=== PATIENT | male | born 1965 | race Caucasian/White ===

== ENCOUNTER 2017-02-18 06:57 | Day surgery (SDC) | payer BC ==
[2017-02-18] MEDS ORDERED: Bupivacaine 0.25%/EPINEPHrine 1:200,000 10 ML SDV INJECT ONE (07:00)
[2017-02-18] MEDS ORDERED: Acetaminophen/HYDROcodone 325-5 MG Tab PO PRN (07:00)
[2017-02-18] MEDS ORDERED: Bupivacaine 0.25%/EPINEPHrine 1:200,000 10 ML SDV ONE (07:32)
--- NOTE | 2017-02-18 07:38 | PCM.PREANE ---
Preanesthetic Assessment - Anesthesia/Transfusion/Family Hx Anesthesia History: Prior Anesthesia Without Reaction Family History of Anesthesia Reaction: No Transfusion History: No Prior Transfusion(s) Intubation History: Unknown - Review of Systems General: No Symptoms Pulmonary: No Symptoms Cardiovascular: No Symptoms Gastrointestinal: No Symptoms Neurological: No Symptoms Other: Reports: None - Physical Assessment NPO Status Date: 02/17/17 NPO Status Time: 20:00 O2 Sat by Pulse Oximetry: 97 Respiratory Rate: 16 Vital Signs: Last Vital Signs Temp 36.5 C 02/18/17 07:11 Pulse 58 L 02/18/17 07:11 Resp 16 02/18/17 07:11 BP 120/69 02/18/17 07:11 Pulse Ox 97 02/18/17 07:11 Height: 1.85 m Weight: 83.915 kg ASA Class: 2 Mental Status: Alert & Oriented x3 Airway Class: Mallampati = 2 Dentition: Reports: Partial (upper and lower) Thyro-Mental Finger Breadths: 3 Mouth Opening Finger Breadths: 3 ROM/Head Extension: Full Lungs: Clear to Auscultation, Normal Respiratory Effort Cardiovascular: Regular Rate, Regular Rhythm - Allergies Allergies/Adverse Reactions: Allergies Allergy/AdvReac Type Severity Reaction Status Date / Time No Known Allergies Allergy Verified 09/16/15 09:14 - Blood Blood Available: No - Anesthesia Plan Pre-Op Medication Ordered: None - Acknowledgements Anesthesia Type Planned: MAC Pt an Appropriate Candidate for the Planned Anesthesia: Yes Alternatives and Risks of Anesthesia Discussed w Pt/Guardian: Yes Pt/Guardian Understands and Agrees with Anesthesia Plan: Yes PreAnesthesia Questionnaire HEENT History: Reports: Other (See Below) Other HEENT History: wears glasses, has top and bottom partial Respiratory History: Reports: COPD Musculoskeletal History: Reports: Arthritis, Back Pain, Chronic Psychiatric History: Reports: Anxiety - Past Surgical History Head Surgeries/Procedures: Reports: None Neurological Surgical History: Reports: Lumbar Spine Other Neurological Surgeries/Procedures: hx back surgery Musculoskeletal Surgical History: Reports: Arthroscopic Knee, Hip Replacement, Shoulder Surgery Other Musculoskeletal Surgeries/Procedures:: right knee arthroscopy x3, left hip arthroplasty, right shoulder surgery - SUBSTANCE USE Smoking Status *Q: Former Smoker Tobacco Use Within Last Twelve Months: No Days Per Week of Alcohol Use: 7 Number of Drinks Per Day: 2 Total Drinks Per Week: 14 Recreational Drug Use History: No - HOME MEDS Home Medications: Home Meds LORazepam 0.5 mg PO ASDIRECTED 02/15/17 [History] - CURRENT (IN HOUSE) MEDS Current Meds: Current Medications Hydrocodone Bitart/Acetaminophen (Traver 325-5 Mg) 1 tab PO Q4H PRN PRN Reason: Pain Lactated Ringer's (Ringers, Lactated) 1,000 mls @ 125 mls/hr IV ASDIRECTED ANNA Last Admin: 02/18/17 07:13 Dose: 125 mls/hr Cefazolin Sodium/Dextrose 2 gm (/ Premix) 50 mls @ 100 mls/hr IV ONETIME ONE Stop: 02/18/17 08:29 Discontinued Medications Bupivacaine HCl/Epinephrine Bitart (Marcaine 0.25%/Epinephrine 1:200,000) 10 ml INJECT ONETIME ONE Stop: 02/18/17 07:01
[2017-02-18] MEDS ORDERED: Ondansetron 4 MG/2 ML SDV ONE (07:44)
[2017-02-18] MEDS ORDERED: Midazolam 1 MG/ML 2 ML SDV ONE (07:45)
[2017-02-18] MEDS ORDERED: fentaNYL 100 MCG/2 ML SDV ONE (07:45)
[2017-02-18] MEDS ORDERED: Propofol 200 MG/20 ML SDV ONE (07:45)
[2017-02-18] MEDS ORDERED: Lactated Ringers 1,000 ML IV SCH (08:00)
[2017-02-18] MEDS ORDERED: ceFAZolin 2 GM in Premix Bag 1 BAG IV ONE (08:00)
[2017-02-18] MEDS ORDERED: Ketorolac 30 MG/ML SDV ONE (08:56)
[2017-02-18 09:52] VITALS: BP 111/70
--- NOTE | 2017-02-18 09:54 | PCM48HPAN ---
Post Anesthesia Note - EVALUATION WITHIN 48HRS OF ANESTHETIC Vital Signs in Normal Range: Yes Patient Participated in Evaluation: Yes Respiratory Function Stable: Yes Airway Patent: Yes Cardiovascular Function Stable: Yes Hydration Status Stable: Yes Pain Control Satisfactory: Yes Nausea and Vomiting Control Satisfactory: Yes Mental Status Recovered: Yes - COMMENTS/OBSERVATIONS Free Text/Narrative:: No anesthesia problems. Patient skipped recovery room phase of postoperative care.
--- NOTE | 2017-02-21 08:45 | PCM.OPNOTE ---
- General Post-Op/Procedure Note Date of Surgery/Procedure: 02/18/17 Operative Procedure(s): right carpal tunnel release Findings: right carpal tunnel syndrome Pre Op Diagnosis: right carpal tunnel syndrome Post-Op Diagnosis: Same Primary Surgeon: Nette Ramirez Medicaid Service Coordinator: Nery Brennan Complications: None Condition: Good
--- NOTE | 2017-02-21 14:08 | OR ---
SURGEON: JERRY COWAN MD DATE OF PROCEDURE: 02/18/2017 PREOPERATIVE DIAGNOSIS: Right carpal tunnel syndrome. POSTOPERATIVE DIAGNOSIS: Right carpal tunnel syndrome. PROCEDURE: Right carpal tunnel release. INDICATIONS: Mr. Fuller is a 51-year-old gentleman seen today in evaluation for right carpal tunnel release. Risks and benefits were discussed and he was in agreement to proceed. Risks were including, but not limited to, bleeding, infection, damage to underlying or overlying structures, possible need for future interventions and possible scarring. PROCEDURE IN DETAIL: After informed consent was obtained and placed on the chart, the patient was brought to the operating theater and laid in the supine position. After adequate local MAC anesthesia was obtained, the area was prepped and draped, and a time-out was completed to confirm side and site. The arm was exsanguinated and tourniquet was inflated to 200 mmHg. Once adequately completed, attention was then paid to dissection over the transverse carpal ligament which was done using a 15 blade and then once breached of the ligament dissection distally and proximally using a Littler scissor under direct visualization. Once adequately released, the area was irrigated and closed using a 5-0 nylon stitch in a horizontal mattress fashion. The patient tolerated the procedure well. All counts and needles were correct at the end of the case. FOLLOWUP INSTRUCTIONS: The patient was given a prescription for pain control and will call us with any issues or concerns. Otherwise, he will follow up in 10 days, sooner if any problems, questions, or concerns. Prescription was given for pain medication. HEGGTHE / EDGAR /[id number]
== END 2017-02-18 09:50 | disposition home or self-care (01) ==
LOC: MW.SDS 06:57
PROVIDERS: ATTEND Plastic Surgery
PROC: 01N50ZZ Release Median Nerve, Open Approach (ICD-10-PCS; principal; 2017-02-18)
DX: G56.01 Carpal tunnel syndrome, right upper limb (principal); J44.9 Chronic obstructive pulmonary disease, unspecified; M19.90 Unspecified osteoarthritis, unspecified site; Z87.891 Personal history of nicotine dependence; Z96.641 Presence of right artificial hip joint; Z98.890 Other specified postprocedural states
CPT/HCPCS: 64721; J1885; J2250; J2405; J3010; J7120; 01810; J2704

== ENCOUNTER 2017-07-20 10:12 | Day surgery (SDC) | payer BC ==
[~2017-07-20 10:12] MED LIST: Acetaminophen/HYDROcodone 325-10 MG Tab PO PRN; Dexamethasone 4 MG/ML 5 ML MDV ONE; HYDROmorphone 2 MG/ML Syringe ONE; Ketorolac 10 MG Tab PO PRN; Lactated Ringers 1,000 ML IV SCH; Midazolam 1 MG/ML 2 ML SDV ONE; Ondansetron 4 MG/2 ML SDV ONE; Propofol 200 MG/20 ML SDV ONE; Rocuronium 10 MG/ML 10 ML Syringe ONE; ceFAZolin 2 GM in Premix Bag 1 BAG IV SCH; diphenhydrAMINE 50 MG/ML SDV ONE; fentaNYL 250 MCG/5 ML SDV ONE
[2017-07-20] MEDS ORDERED: fentaNYL 100 MCG/2 ML SDV IVPUSH PRN (10:46)
[2017-07-20] MEDS ORDERED: Midazolam 1 MG/ML 2 ML SDV IVPUSH ONE (10:47)
--- NOTE | 2017-07-20 10:49 | PCM.PREANE ---
Preanesthetic Assessment - Anesthesia/Transfusion/Family Hx Anesthesia History: Prior Anesthesia Without Reaction Family History of Anesthesia Reaction: No Transfusion History: No Prior Transfusion(s) Intubation History: Unknown - Review of Systems General: No Symptoms Pulmonary: Other (PEREZ) Cardiovascular: No Symptoms Gastrointestinal: No Symptoms Neurological: No Symptoms Other: Reports: None - Physical Assessment O2 Sat by Pulse Oximetry: 100 Respiratory Rate: 16 Vital Signs: Last Vital Signs Temp 36.3 C 07/20/17 10:37 Pulse 76 07/20/17 10:37 Resp 16 07/20/17 10:37 BP 110/83 07/20/17 10:37 Pulse Ox 100 07/20/17 10:37 Height: 1.85 m Weight: 81.647 kg ASA Class: 2 Mental Status: Alert & Oriented x3 Airway Class: Mallampati = 2 Dentition: Reports: Normal Dentition ROM/Head Extension: Full Lungs: Clear to Auscultation, Normal Respiratory Effort Cardiovascular: Regular Rate, Regular Rhythm - Allergies Allergies/Adverse Reactions: Allergies Allergy/AdvReac Type Severity Reaction Status Date / Time No Known Allergies Allergy Verified 09/16/15 09:14 - Anesthesia Plan Pre-Op Medication Ordered: None - Acknowledgements Anesthesia Type Planned: General Anesthesia Pt an Appropriate Candidate for the Planned Anesthesia: Yes Alternatives and Risks of Anesthesia Discussed w Pt/Guardian: Yes Pt/Guardian Understands and Agrees with Anesthesia Plan: Yes PreAnesthesia Questionnaire HEENT History: Reports: Other (See Below) Other HEENT History: wears glasses, has top and bottom partial Respiratory History: Reports: COPD Musculoskeletal History: Reports: Arthritis, Back Pain, Chronic Neurological History: Reports: Head Trauma Other Neuro History: restless leg syndrome, hx head injury with stitches Psychiatric History: Reports: Anxiety - Past Surgical History Head Surgeries/Procedures: Reports: None Neurological Surgical History: Reports: Lumbar Spine Other Neurological Surgeries/Procedures: hx back surgery Musculoskeletal Surgical History: Reports: Arthroscopic Knee, Hip Replacement, Shoulder Surgery Other Musculoskeletal Surgeries/Procedures:: right knee arthroscopy x3, left hip arthroplasty, right shoulder surgery - SUBSTANCE USE Smoking Status *Q: Former Smoker Tobacco Use Within Last Twelve Months: No Days Per Week of Alcohol Use: 7 Number of Drinks Per Day: 2 Total Drinks Per Week: 14 Recreational Drug Use History: No - HOME MEDS Home Medications: Home Meds LORazepam 1 mg PO TID 02/15/17 [History] Acetaminophen with Codeine [Acetaminophen-Cod #3] 2 tab PO BEDTIME 07/13/17 [ History] DULoxetine HCl [Cymbalta] 60 mg PO DAILY 07/13/17 [History] Gabapentin [Neurontin] 600 mg PO TID 07/13/17 [History] - CURRENT (IN HOUSE) MEDS Current Meds: Current Medications Hydrocodone Bitart/Acetaminophen (Kell 325-10 Mg) 1 - 2 tab PO Q4H PRN PRN Reason: Pain Cefazolin Sodium/Dextrose 2 gm (/ Premix) 50 mls @ 100 mls/hr IV ONCALL [facility] Lactated Ringer's (Ringers, Lactated) 1,000 mls @ 100 mls/hr IV ASDIRECTED [facility] Ketorolac Tromethamine (Toradol) 10 mg PO Q6H PRN PRN Reason: Pain Stop: 07/25/17 09:01 Discontinued Medications Dexamethasone (Dexamethasone) Confirm Administered Dose 20 mg .ROUTE .STK-MED ONE Stop: 07/20/17 08:57 Diphenhydramine HCl (Benadryl) Confirm Administered Dose 50 mg .ROUTE .STK-MED ONE Stop: 07/20/17 08:57 Fentanyl (Sublimaze) Confirm Administered Dose 250 mcg .ROUTE .STK-MED ONE Stop: 07/20/17 08:58 Hydromorphone HCl (Dilaudid) Confirm Administered Dose 2 mg .ROUTE .STK-MED ONE Stop: 07/20/17 08:58 Cefazolin Sodium/Dextrose (Ancef) Confirm Administered Dose 100 mls @ as directed .ROUTE .STK-MED ONE Stop: 07/20/17 08:57 Acetaminophen (Ofirmev) Confirm Administered Dose 100 mls @ as directed IV .STK- MED ONE Stop: 07/20/17 09:03 Midazolam HCl (Versed 1 Mg/Ml) Confirm Administered Dose 2 mg .ROUTE .STK-MED ONE Stop: 07/20/17 08:58 Ondansetron HCl (Zofran) Confirm Administered Dose 4 mg .ROUTE .STK-MED ONE Stop: 07/20/17 08:57 Propofol (Diprivan 20 Ml) Confirm Administered Dose 200 mg .ROUTE .STK-MED ONE Stop: 07/20/17 08:58 Rocuronium [place] (Zemuron) Confirm Administered Dose 100 mg .ROUTE .[facility] ONE Stop: 07/20/17 08:57
[2017-07-20] MEDS ORDERED: Lidocaine 2% 5 ML SDV ONE (10:52)
[2017-07-20] MEDS ORDERED: Dexamethasone 4 MG/ML 5 ML MDV ONE (10:52)
[2017-07-20] MEDS ORDERED: Bupivacaine 0.5% 30 ML SDV ONE (10:54)
--- NOTE | 2017-07-20 11:12 | PCM.SN ---
- Free Text/Narrative Note: isb note: time out performed, skin local with 1% xylo. 30 ml 0.5% bupiv plus 8 mg dexamethssone given in 5 ml increments, + twitch, no paresthesia, no blood or csf. No complications.
[2017-07-20] MEDS ORDERED: Phenylephrine 1% 10 MG/ML SDV ONE (11:49)
[2017-07-20] MEDS ORDERED: Phenylephrine/Normal Saline 100 MCG/ML 10 ML Syringe ONE (11:49)
--- NOTE | 2017-07-20 13:21 | PCM.OPNOTE ---
- General Post-Op/Procedure Note Date of Surgery/Procedure: 07/20/17 Operative Procedure(s): L shoulder arthroscopy with SAD, debridement of anterior labrum, and RTCR Post-Op Diagnosis: L shoulder impingement, RTC tear, degenerative anterior labral tear Anesthesia Technique: General ET Tube, Regional Block Primary Surgeon: Arti Starr Catalyst Supervisor: Robyn Feliciano in mLs: 10 Condition: Good Free Text/Narrative:: #[id number]
--- NOTE | 2017-07-20 14:05 | PCM.POSTAN ---
POST ANESTHESIA ASSESSMENT - MENTAL STATUS Mental Status: Alert, Oriented - RESPIRATORY Respiratory Status: Respiratory Rate WNL, Airway Patent, O2 Saturation Stable - CARDIOVASCULAR CV Status: Pulse Rate WNL, Blood Pressure Stable - GASTROINTESTINAL GI Status: No Symptoms - POST OP HYDRATION Hydration Status: Adequate & Stable
[2017-07-20 14:56] VITALS: BP 119/79
--- NOTE | 2017-07-20 18:00 | OR ---
SURGEON: Arti Starr MD DATE OF PROCEDURE: 07/20/2017 PREOPERATIVE DIAGNOSES: 1. Left shoulder impingement syndrome. 2. Left shoulder rotator cuff tear. 3. Biceps tendinopathy. POSTOPERATIVE DIAGNOSES: 1. Left shoulder impingement syndrome. 2. Left shoulder rotator cuff tear. 3. Left shoulder degenerative anterior labral tear. 4. Biceps tendinopathy. PROCEDURE: Left shoulder arthroscopy with, 1. Subacromial decompression with release of coracoacromial ligament and acromioplasty. 2. Extensive debridement including debridement of degenerative anterior labral tear and biceps tenotomy. 3. Arthroscopic rotator cuff repair. KINDERGARTNER: Robyn Feliciano PA-C. ANESTHESIA: General with interscalene block. ESTIMATED BLOOD LOSS: 5 mL. TOURNIQUET TIME: 0 minutes. COMPLICATIONS: None. DVT PROPHYLAXIS: PAS boots to bilateral lower extremities. IMPLANTS USED: One Arthrex 4.5 mm corkscrew anchor and one Arthrex 4.75 mm BioComposite anchor. BRIEF HISTORY: [place] is a 52-year-old male who has had complaint of left shoulder pain. An MRI did show evidence of impingement syndrome along with a small full-thickness tear along the anterior aspect of the supraspinatus. Due to his lack of response to conservative treatment, I did recommend surgical intervention. The risks and goals of procedure were discussed with the patient and were documented preoperatively. He agreed to proceed. DESCRIPTION OF PROCEDURE: The patient was properly identified and brought to the operating room. He was transferred from the OR cart and placed on the operating table in supine position. General anesthesia was administered. An interscalene block had been administered preoperatively. After adequate anesthesia was obtained, the patient was placed in a beach-chair type position. Care was taken to pad all bony prominences. His head was secured. Left upper extremity was then prepped in standard fashion using ChloraPrep solution. It was then sterilely draped. A time-out was performed to ensure correct site and procedure. Preoperative antibiotics were given. The surgical site had been marked preoperatively. Bony landmarks were identified with a marking pen. Approximately 30 mL of normal saline was introduced into the glenohumeral joint. Camera, inflow, and outflow were assembled. The rotator interval was identified. He did have mild synovitis. An anterior portal was then established. A probe was inserted. The subscapularis was found to be intact. There were no loose bodies within the subscapular recess. The anterior labrum did show some degeneration. This was resected using electrocautery to a stable remnant. The biceps was then inspected. It was pulled into the joint. Extensive synovitis was noted along the distal portion of the biceps. Some longitudinal splits were also noted. Next, elected to proceed with a biceps tenotomy. Electrocautery was used to tenotomized the biceps tendon at its insertion on the glenoid labrum. Its attachment site was smoothed. The biceps retracted easily into the bicipital tendon sheath. The posterior labrum appeared intact. Both the glenoid and humeral head showed no significant degenerative findings. The axillary pouch showed no loose bodies. The arm was then brought into an abducted and externally rotated position. The bare area was noted posteriorly. As I progressed forward, the cuff insertion was quite degenerative. This was resected for visualization. The majority of the cuff appeared intact. As I got to the anterior portion of the supraspinatus, there was found to be a full-thickness tear noted. The arm was then brought back into a neutral position. Instruments were then placed into the subacromial space. A lateral portal was established. An extensive bursectomy was performed. The undersurface of the acromion was cleared of soft tissue. A type 2 acromion was noted. Release of the coracoacromial ligament was performed. An acromioplasty was done with a 5.0 mm kristen. This provided good decompression of the subacromial space. The rotator cuff was then inspected. The full-thickness tear was noted anteriorly. A cuff grasper was used to reapproximate the cuff tissue back to its footprint and was found to be adequately mobile. The kristen was then used to roughen up the footprint just lateral to the articular surface. A 4.5 mm corkscrew was then placed centrally. The sutures were passed through the rotator cuff. The sutures were then tied. This allowed the rotator cuff to easily come back to the footprint. I elected to place a 4.75 mm SwiveLock anchor laterally to provide additional compression of the sutures on the rotator cuff. Final inspection of the cuff showed the cuff to be secure with a watertight closure. The suture ends were then trimmed. Instruments were removed from the shoulder. The portal sites were closed with 3-0 nylon. Xeroform gauze was placed over the wounds and a bulky dressing was applied. He was awakened from his anesthetic and transferred back to the operating room cart. He was brought to recovery room in stable condition. All needle and sponge counts were correct. MONICA HERNÁNDEZ /[id number]
== END 2017-07-20 15:30 | disposition home or self-care (01) ==
LOC: MW.SDS 10:12
PROVIDERS: ATTEND Orthopaedic Surgery
DX: M75.102 Unspecified rotator cuff tear or rupture of left shoulder, not specified as traumatic (principal); M75.42 Impingement syndrome of left shoulder; M67.929 Unspecified disorder of synovium and tendon, unspecified upper arm; S43.492A Other sprain of left shoulder joint, initial encounter; Z79.899 Other long term (current) drug therapy; X58.XXXA Exposure to other specified factors, initial encounter
CPT/HCPCS: 29823; 29826; 29827; C1713; J0690; J1100; J1200; J2250; J2370; J2405; J3010; 01630; 88304; J1170; J2704

== ENCOUNTER 2018-08-09 07:27 | Day surgery (SDC) | payer BC ==
[~2018-08-09 07:27] MED LIST changes: -Acetaminophen/HYDROcodone 325-10 MG Tab PO PRN; -HYDROmorphone 2 MG/ML Syringe ONE; -Ketorolac 10 MG Tab PO PRN; -Lactated Ringers 1,000 ML IV SCH; +Succinylcholine 200 MG/10 ML MDV ONE; -ceFAZolin 2 GM in Premix Bag 1 BAG IV SCH; -diphenhydrAMINE 50 MG/ML SDV ONE
[2018-08-09] MEDS ORDERED: ceFAZolin 2 GM in Premix Bag 1 BAG IV SCH (07:30)
[2018-08-09] MEDS ORDERED: Bupivacaine 25%/EPINEPHrine/PF 30 ML ONE (07:30)
[2018-08-09] MEDS ORDERED: EPINEPHrine 1 MG/ML SDV ONE (07:30)
--- NOTE | 2018-08-09 07:55 | PCM.PREANE ---
Preanesthetic Assessment - Anesthesia/Transfusion/Family Hx Anesthesia History: Prior Anesthesia Without Reaction Family History of Anesthesia Reaction: No Transfusion History: No Prior Transfusion(s) Intubation History: Unknown - Review of Systems General: No Symptoms Pulmonary: Shortness of Breath Cardiovascular: No Symptoms, Dyspnea on Exertion Neurological: Other (chronic LBP) Other: Reports: Anxiety - Physical Assessment NPO Status Date: 08/08/18 O2 Sat by Pulse Oximetry: 99 Respiratory Rate: 16 Vital Signs: Last Vital Signs Temp 97.7 F 08/09/18 07:50 Pulse 78 08/09/18 07:50 Resp 16 08/09/18 07:50 BP 112/85 08/09/18 07:50 Pulse Ox 99 08/09/18 07:50 Height: 6 ft 1 in Weight: 81.647 kg ASA Class: 2 Mental Status: Alert & Oriented x3 Airway Class: Mallampati = 1 Dentition: Reports: Missing Tooth/Teeth ROM/Head Extension: Full Lungs: Clear to Auscultation, Normal Respiratory Effort Cardiovascular: Regular Rate, Regular Rhythm - Allergies Allergies/Adverse Reactions: Allergies Allergy/AdvReac Type Severity Reaction Status Date / Time No Known Allergies Allergy Verified 08/04/18 13:11 - Blood Blood Available: No - Anesthesia Plan Pre-Op Medication Ordered: None - Acknowledgements Anesthesia Type Planned: General Anesthesia Pt an Appropriate Candidate for the Planned Anesthesia: Yes Alternatives and Risks of Anesthesia Discussed w Pt/Guardian: Yes Pt/Guardian Understands and Agrees with Anesthesia Plan: Yes PreAnesthesia Questionnaire HEENT History: Reports: Hard of Hearing, Impaired Vision, Other (See Below) Other HEENT History: wears glasses, has top and bottom partial, himanshu hearing aids Respiratory History: Reports: COPD Other Respiratory History: denies having prescribed inhaler Musculoskeletal History: Reports: Arthritis, Back Pain, Chronic, Fracture Other Musculoskeletal History: hx fx ribs and bone in left hand Neurological History: Reports: Head Trauma, Other (See Below) Other Neuro History: restless leg syndrome, hx head injury with stitches Psychiatric History: Reports: Anxiety Endocrine/Metabolic History: Reports: None - Past Surgical History Head Surgeries/Procedures: Reports: None Neurological Surgical History: Reports: Lumbar Spine Other Neurological Surgeries/Procedures: hx back surgery Musculoskeletal Surgical History: Reports: Arthroscopic Knee, Hip Replacement, Shoulder Surgery Other Musculoskeletal Surgeries/Procedures:: right knee arthroscopy x3, left hip arthroplasty, himanshu shoulder surgery - SUBSTANCE USE Smoking Status *Q: Former Smoker Recreational Drug Use History: No - HOME MEDS Home Medications: Home Meds LORazepam 1 mg PO TID PRN 02/15/17 [History] DULoxetine HCl [Cymbalta] 60 mg PO DAILY 07/13/17 [History] Gabapentin [Neurontin] 600 mg PO TID 07/13/17 [History] Acetaminophen with Codeine [Tylenol with Codeine #3 Tablet] 2 tab PO BEDTIME [History] Celecoxib 200 mg pe PO DAILY 08/04/18 [History] - CURRENT (IN HOUSE) MEDS Current Meds: Current Medications Cefazolin Sodium/Dextrose 2 gm (/ Premix) 50 mls @ 100 mls/hr IV ONETIME ANNA Discontinued Medications Dexamethasone (Dexamethasone) Confirm Administered Dose 20 mg .ROUTE .STK-MED ONE Stop: 08/09/18 07:00 Epinephrine HCl (Adrenalin) Confirm Administered Dose 6 mg .ROUTE .STK-MED ONE Stop: 08/09/18 07:31 Fentanyl (Sublimaze) Confirm Administered Dose 250 mcg .ROUTE .STK-MED ONE Stop: 08/09/18 06:58 Lidocaine HCl (Xylocaine-Mpf 1%) Confirm Administered Dose 5 mls @ as directed .ROUTE .STK-MED ONE Stop: 08/09/18 07:00 Bupivacaine HCl/Epinephrine Bitart (Sensorc Mpf 0.25%-Epi [id number]) Confirm Administered Dose 30 mls @ as directed .ROUTE .STK-MED ONE Stop: 08/09/18 07:31 Midazolam HCl (Versed 1 Mg/Ml) Confirm Administered Dose 2 mg .ROUTE .STK-MED ONE Stop: 08/09/18 06:58 Ondansetron HCl (Zofran) Confirm Administered Dose 4 mg .ROUTE .STK-MED ONE Stop: 08/09/18 07:00 Propofol (Diprivan 20 Ml) Confirm Administered Dose 200 mg .ROUTE .STK-MED ONE Stop: 08/09/18 06:58 Rocuronium [place] (Zemuron) Confirm Administered Dose 100 mg .ROUTE .STK-MED ONE Stop: 08/09/18 07:00 Succinylcholine Chloride (Quelicin) Confirm Administered Dose 200 mg .ROUTE .STK -MED ONE Stop: 08/09/18 07:00
[2018-08-09] MEDS ORDERED: ceFAZolin/Dextrose,Iso-Osmotic 2 GM/50 ML Duplex Bag IV ONE ×2 (08:16→09:35)
[2018-08-09] MEDS ORDERED: Midazolam 1 MG/ML 2 ML SDV ONE (09:36)
[2018-08-09] MEDS ORDERED: fentaNYL 250 MCG/5 ML SDV ONE (09:36)
[2018-08-09] MEDS ORDERED: Propofol 200 MG/20 ML SDV ONE (09:37)
[2018-08-09] MEDS ORDERED: Phenylephrine 1% 10 MG/ML SDV ONE (09:52)
--- NOTE | 2018-08-09 10:53 | PCM.OPNOTE ---
- General Post-Op/Procedure Note Date of Surgery/Procedure: 08/09/18 Operative Procedure(s): left hip endoscopy, iliopsoas recession, trochanteric bursectomy with iliotibial band lengthening Pre Op Diagnosis: left hip iliopsoas bursitis and trochanteric bursitis Post-Op Diagnosis: same Anesthesia Technique: General ET Tube Primary Surgeon: Jermaine Bolton Mai Supervisor Tree Trimming: Robyn Feliciano EBL in mLs: 5 Complications: none Condition: Good
[2018-08-09] MEDS ORDERED: Acetaminophen 1,000 MG in Premix Bag 1 BAG IV ONE (11:19)
[2018-08-09] MEDS ORDERED: Ketorolac 30 MG/ML SDV IVPUSH ONE (11:19)
[2018-08-09] MEDS ORDERED: HYDROmorphone 2 MG/ML SDV IVPUSH ONE (11:20)
[2018-08-09] MEDS ORDERED: HYDROmorphone 2 MG/ML Syringe IVPUSH ONE (12:00)
--- NOTE | 2018-08-09 12:09 | PCM.POSTAN ---
POST ANESTHESIA ASSESSMENT - MENTAL STATUS Mental Status: Alert, Oriented - RESPIRATORY Respiratory Status: Respiratory Rate WNL, Airway Patent, O2 Saturation Stable - CARDIOVASCULAR CV Status: Pulse Rate WNL, Blood Pressure Stable - GASTROINTESTINAL GI Status: No Symptoms - POST OP HYDRATION Hydration Status: Adequate & Stable - OBSERVATIONS Free Text/Narrative:: comfortable, no nausea
--- NOTE | 2018-08-09 13:07 | OR ---
SURGEON: Jermaine Schulz MD DATE OF PROCEDURE: 08/09/2018 DISTANCE LEARNING COORDINATOR: Robyn Feliciano PA-C PREOPERATIVE DIAGNOSIS: Left hip iliopsoas bursitis and trochanteric bursitis. POSTOPERATIVE DIAGNOSIS: Left hip iliopsoas bursitis and trochanteric bursitis. OPERATION PERFORMED: Left hip arthroscopy, iliopsoas recession, trochanteric bursectomy with the IT band lengthening. ANESTHESIA: General. COMPLICATIONS: None. ESTIMATED BLOOD LOSS: 5 mL. SPECIMENS: None. INDICATIONS: The patient is a 53-year-old male who several years ago at an outside facility had underwent a left hip replacement. The cup is prominent anteriorly rubbing on the iliopsoas tendon. He had good relief from injection. He wished to undergo the above procedure. He understands the risks, benefits, alternatives, and complications of the procedure which includes, but not limited, infection, neurovascular injury, continued pain, nonresolution of symptoms, need further surgery to include hip revision and he wished to proceed. DESCRIPTION OF PROCEDURE: The patient was seen in the preoperative area. Operative extremity was marked with the patient. He was transferred to operating room and placed supine on the Nathan table. General anesthesia was induced. Endotracheal tube was placed. He received preop antibiotics of Ancef. The legs were placed in the leg bars with a narrow perineal post. Left hip was prepped and draped in a sterile fashion using alcohol, followed by ChloraPrep. A formal time-out was taken, identifying the correct patient, procedure, and extremity. Under fluoroscopic control, primary anterolateral portal was established just superior and anterior to the tip of the greater trochanter. A DALA portal was established about 5 cm distal and the mid anterior portal 2 cm distal and 4 cm anterior. A shaver was used to clean out the area anterior to the joint. The indirect head of the rectus was found and the fat between the gluteus minimus and iliocapsularis was cleaned out, visualized medially. The iliocapsularis muscle was debrided off the anterior aspect of the tendon. There was a lot of bleeding in this area which was controlled radiofrequency device and then the iliopsoas tendon was found directly on top of the cup, which was exposed with intense amount of bursitis around this and this was completely cleaned out with the shaver and then the radiofrequency device was used to release the tendon just above the acetabular component. Following this, the leg was abducted, arthroscope was introduced into the peritrochanteric space. Extensive amount of scar tissue and bursitis completely cleaned out distally exposing the gluteus carlos tendon, and then switching and cleaned up proximally. There was no tearing of the abductors. The complete bursectomy was performed proximally and then the IT band was lengthened at about three quarters of it from anterior to posterior based on the very lateral aspect of the femur. The hip was then drained. The arthroscopic equipment was removed. Portals closed with nylon. Xeroform sterile dressing was applied. The patient was extubated in the operative room, transferred to the recovery room in stable condition. Sponge and needle counts were correct at the end of the case. There were no complications. He will be kept weightbearing as tolerated with hip flexion exercises. NATALY HERNÁNDEZ /[id number]
[2018-08-09 13:15] VITALS: BP 114/68
--- NOTE | 2018-08-09 13:28 | PCM48HPAN ---
Post Anesthesia Note - EVALUATION WITHIN 48HRS OF ANESTHETIC Vital Signs in Normal Range: Yes Patient Participated in Evaluation: Yes Respiratory Function Stable: Yes Airway Patent: Yes Cardiovascular Function Stable: Yes Hydration Status Stable: Yes Pain Control Satisfactory: Yes Nausea and Vomiting Control Satisfactory: Yes Mental Status Recovered: Yes Resp Rate: 16
== END 2018-08-09 13:43 | disposition home or self-care (01) ==
LOC: MW.SDS 07:27
PROVIDERS: ATTEND Orthopaedic Surgery
DX: M70.62 Trochanteric bursitis, left hip (principal); M70.72 Other bursitis of hip, left hip; G89.29 Other chronic pain; J44.9 Chronic obstructive pulmonary disease, unspecified; F41.9 Anxiety disorder, unspecified; Z87.891 Personal history of nicotine dependence; Z79.899 Other long term (current) drug therapy; Z96.642 Presence of left artificial hip joint
CPT/HCPCS: 29863; 29999; 76000; J0131; J0171; J0330; J0690; J1100; J1170; J1885; J2250; J2370; J2405; J2704; J3010

== ENCOUNTER 2018-12-05 09:36 | Emergency (ER) | payer BC ==
[2018-12-05] MEDS ORDERED: Aspirin 81 MG Tab.Chew PO ONE (09:42)
[2018-12-05] MEDS ORDERED: Sodium Chloride 0.9% 1,000 ML IV ONE (09:42)
--- NOTE | 2018-12-05 09:44 | EDM.PDOC ---
ED HPI GENERAL MEDICAL PROBLEM - General Chief Complaint: Chest Pain Stated Complaint: CHEST PAIN Time Seen by Provider: 12/05/18 09:43 Source of Information: Reports: Patient - History of Present Illness INITIAL COMMENTS - FREE TEXT/NARRATIVE: HISTORY AND PHYSICAL: History of present illness: [Patient presents with chest pain 5 out of 10 nonradiating left-sided chest radiating into his arm some lightheaded dizziness pain began while at rest and for one hour. On arrival to the ER we did provide aspirin and nitroglycerin after the second dose pain completely resolved he remains pain-free at current No fever nausea vomiting chills sweats] Review of systems: As per history of present illness and below otherwise all systems reviewed and negative. Past medical history: As per history of present illness and as reviewed below otherwise noncontributory. Surgical history: As per history of present illness and as reviewed below otherwise noncontributory. Social history: No reported history of drug or alcohol abuse. Family history: As per history of present illness and as reviewed below otherwise noncontributory. Physical exam: HEENT: Atraumatic, normocephalic, pupils reactive, negative for conjunctival pallor or scleral icterus, mucous membranes moist, throat clear, neck supple, nontender, trachea midline. Lungs: Clear to auscultation, breath sounds equal bilaterally, chest nontender. Heart: S1S2, regular, negative for clicks, rubs, or JVD. Abdomen: Soft, nondistended, nontender. Negative for masses or hepatosplenomegaly. Negative for costovertebral tenderness. Pelvis: Stable nontender. Genitourinary: Deferred. Rectal: Deferred. Extremities: Atraumatic, negative for cords or calf pain. Neurovascular unremarkable. Neuro: Awake, alert, oriented. Cranial nerves II through XII unremarkable. Cerebellum unremarkable. Motor and sensory unremarkable throughout. Exam nonfocal. Diagnostics: [CBC CMP UA troponin lipase INR EKG Chest 1 view ] Therapeutics: [ normal saline Aspirin 324 mg chewable Nitroglycerin sublingual Lovenox 1 mg/kg subcutaneous Lopressor 5 mg IV Vasotec 0.652 mg IV Patient sent to [facility] in the ER ] Impression: [ to coronary syndrome ] Definitive disposition and diagnosis as appropriate pending reevaluation and review of above. chest pain Pain Score (Numeric/FACES): 6 - Related Data Allergies Allergy/AdvReac Type Severity Reaction Status Date / Time No Known Allergies Allergy Verified 12/05/18 09:43 Home Meds: Home Meds LORazepam 1 mg PO TID PRN 02/15/17 [History] DULoxetine HCl [Cymbalta] 60 mg PO DAILY 07/13/17 [History] Gabapentin [Neurontin] 600 mg PO QID 07/13/17 [History] Acetaminophen/HYDROcodone [[place] 325-5 MG] 1 - 2 tab PO Q4H PRN #60 tablet 08/09 [Rx] Past Medical History HEENT History: Reports: Hard of Hearing, Impaired Vision, Other (See Below) Other HEENT History: wears glasses, has top and bottom partial, himanshu hearing aids Respiratory History: Reports: COPD Other Respiratory History: denies having prescribed inhaler Musculoskeletal History: Reports: Arthritis, Back Pain, Chronic, Fracture Other Musculoskeletal History: hx fx ribs and bone in left hand Neurological History: Reports: Head Trauma, Other (See Below) Other Neuro History: restless leg syndrome, hx head injury with stitches Psychiatric History: Reports: Anxiety Endocrine/Metabolic History: Reports: None - Past Surgical History Head Surgeries/Procedures: Reports: None Neurological Surgical History: Reports: Lumbar Spine Other Neurological Surgeries/Procedures: hx back surgery Musculoskeletal Surgical History: Reports: Arthroscopic Knee, Hip Replacement, Shoulder Surgery Other Musculoskeletal Surgeries/Procedures:: right knee arthroscopy x3, left hip arthroplasty, himanshu shoulder surgery ED ROS GENERAL - Review of Systems Review Of Systems: See Below ED EXAM, GENERAL - Physical Exam Exam: See Below Course - Vital Signs Last Recorded V/S: Last Vital Signs Temp 97.4 F 12/05/18 09:43 Pulse 64 12/05/18 10:00 Resp 18 12/05/18 10:00 BP 114/71 12/05/18 10:00 Pulse Ox 100 12/05/18 09:43 - Orders/Labs/Meds Orders: Active Orders 24 hr Category Date Time Status EKG Documentation Completion [RC] STAT Care 12/05/18 09:42 Active INR,PT,PROTHROMBIN TIME [COAG] Stat Lab 12/05/18 10:56 Ordered Metoprolol Tartrate [Lopressor] 5 mg Med 12/05/18 10:56 Ordered Sodium Chloride 0.9% [Normal Saline] 50 ml IV ONETIME Nitroglycerin [Nitrostat] Med 12/05/18 09:42 Active 0.4 mg SL Q5M PRN Sodium Chloride 0.9% [Normal Saline] 1,000 ml Med 12/05/18 11:00 Ordered IV STAT Medication Orders Metoprolol Tartrate 5 mg/ (Sodium Chloride) 55 mls @ 100 mls/hr IV ONETIME ONE Stop: 12/05/18 11:28 Sodium Chloride (Normal Saline) 1,000 mls @ 125 mls/hr IV STAT ANNA Nitroglycerin (Nitrostat) 0.4 mg SL Q5M PRN PRN Reason: Chest Pain Last Admin: 12/05/18 09:55 Dose: 0.4 mg Admin: 12/05/18 09:51 Dose: 0.4 mg Labs: Laboratory Tests 12/05/18 12/05/18 12/05/18 Range/Units 09:43 09:43 10:22 WBC 4.02 (4.0-11.0) K/uL RBC 4.58 (4.50-5.90) M/uL Hgb 14.9 (13.0-17.0) g/dL Hct 43.0 (38.0-50.0) % MCV 93.9 (80.0-98.0) fL MCH 32.5 H (27.0-32.0) pg MCHC 34.7 (31.0-37.0) g/dL RDW Std Deviation 42.1 (28.0-62.0) fl RDW Coeff of Jose 12 (11.0-15.0) % Plt Count 193 (150-400) K/uL MPV 10.30 (7.40-12.00) fL Neut % (Auto) 49.6 (48.0-80.0) % Lymph % (Auto) 43.0 H (16.0-40.0) % Esmeralda % (Auto) 4.7 (0.0-15.0) % Eos % (Auto) 2.5 (0.0-7.0) % Baso % (Auto) 0.2 (0.0-1.5) % Neut # (Auto) 2.0 (1.4-5.7) K/uL Lymph # (Auto) 1.7 (0.6-2.4) K/uL Esmeralda # (Auto) 0.2 (0.0-0.8) K/uL Eos # (Auto) 0.1 (0.0-0.7) K/uL Baso # (Auto) 0.0 (0.0-0.1) K/uL Nucleated RBC % 0.0 /100WBC Nucleated RBCs # 0 K/uL Sodium 142 (136-148) mmol/L Potassium 3.7 (3.5-5.1) mmol/L Chloride 106 (98-107) mmol/L Carbon Dioxide 26.2 (21.0-32.0) mmol/L BUN 16 (7.0-18.0) mg/dL Creatinine 1.2 (0.8-1.3) mg/dL Est Cr Clr Drug Dosing 77.24 mL/min Estimated GFR (MDRD) > 60.0 ml/min Glucose 83 (74-106) mg/dL Calcium 9.2 (8.5-10.1) mg/dL Total Bilirubin 0.5 (0.2-1.0) mg/dL AST 14 L (15-37) IU/L ALT 23 (14-63) IU/L Alkaline Phosphatase 65 (46-116) U/L Troponin I 0.157 H* (0.000-0.056) ng/mL Total Protein 7.3 (6.4-8.2) g/dL Albumin 4.2 (3.4-5.0) g/dL Globulin 3.1 (2.6-4.0) g/dL Albumin/Globulin Ratio 1.4 (0.9-1.6) Lipase 724 H (73-393) U/L Urine Color YELLOW Urine Appearance CLEAR Urine pH 6.0 (5.0-8.0) Ur Specific [place] <= 1.005 (1.001-1.035) Urine Protein NEGATIVE (NEGATIVE) mg/dL Urine Glucose (UA) 100 H (NEGATIVE) mg/dL Urine Ketones NEGATIVE (NEGATIVE) mg/dL Urine Occult Blood NEGATIVE (NEGATIVE) Urine Nitrite NEGATIVE (NEGATIVE) Urine Bilirubin NEGATIVE (NEGATIVE) Urine Urobilinogen 0.2 (<2.0) EU/dL Ur Leukocyte Esterase NEGATIVE (NEGATIVE) Meds: Medications Generic Name Dose Route Start Last Admin Trade Name Freq PRN Reason Stop Dose Admin Metoprolol Tartrate 5 mg/ 55 mls @ 100 mls/hr 12/05/18 10:56 Sodium Chloride IV 12/05/18 11:28 ONETIME ONE Sodium Chloride 1,000 mls @ 125 mls/hr 12/05/18 11:00 Normal Saline IV STAT ANNA Nitroglycerin 0.4 mg 12/05/18 09:42 12/05/18 09:55 Nitrostat SL 0.4 mg Q5M PRN Administration Chest Pain Discontinued Medications Generic Name Dose Route Start Last Admin Trade Name Roseanna PRN Reason Stop Dose Admin Aspirin 324 mg 12/05/18 09:42 12/05/18 09:50 Aspirin PO 12/05/18 09:43 324 mg ONETIME ONE Administration Enalaprilat 0.625 mg 12/05/18 10:57 Vasotec Iv IVPUSH 12/05/18 10:58 NOW STA Enoxaparin Sodium 86 mg 12/05/18 10:56 Lovenox SUBCUT 12/05/18 10:57 ONETIME ONE Sodium Chloride 1,000 mls @ 999 mls/hr 12/05/18 09:42 12/05/18 09:50 Normal Saline IV 12/05/18 10:42 999 mls/hr STAT ONE Administration Sodium Chloride Confirm 12/05/18 10:07 12/05/18 10:13 Normal Saline Administered 12/05/18 10:08 20 mls/hr Dose Administration 20 mls @ as directed .ROUTE .STK-MED ONE Pantoprazole Sodium 80 mg 12/05/18 09:59 12/05/18 10:13 Protonix Iv IVPUSH 12/05/18 10:00 80 mg .BOLUS ONE Administration Departure - Departure Time of Disposition: 11:03 Disposition: DC/Tfer to Acute Hospital 02 Condition: Fair Clinical Impression: Acute coronary syndrome, Elevated lipase, Elevated troponin - Discharge Information Referrals: PCP,Unknown [Primary Care Provider] - Forms: ED Department Discharge - My Orders Last 24 Hours: My Active Orders 12/05/18 09:42 EKG Documentation Completion [RC] STAT Nitroglycerin [Nitrostat] 0.4 mg SL Q5M PRN 12/05/18 10:56 INR,PT,PROTHROMBIN TIME [COAG] Stat Metoprolol Tartrate [Lopressor] 5 mg Sodium Chloride 0.9% [Normal Saline] 50 ml IV ONETIME 12/05/18 11:00 Sodium Chloride 0.9% [Normal Saline] 1,000 ml IV STAT - Assessment/Plan Last 24 Hours: My Active Orders 12/05/18 09:42 EKG Documentation Completion [RC] STAT Nitroglycerin [Nitrostat] 0.4 mg SL Q5M PRN 12/05/18 10:56 INR,PT,PROTHROMBIN TIME [COAG] Stat Metoprolol Tartrate [Lopressor] 5 mg Sodium Chloride 0.9% [Normal Saline] 50 ml IV ONETIME 12/05/18 11:00 Sodium Chloride 0.9% [Normal Saline] 1,000 ml IV STAT
[2018-12-05] MEDS: Nitroglycerin 0.4 MG Tab.SL SL PRN ×2 (09:51→09:55)
[2018-12-05] MEDS ORDERED: Pantoprazole 40 MG Vial IVPUSH ONE (09:59)
[2018-12-05] MEDS ORDERED: Sodium Chloride 0.9% 20 ML ONE (10:07)
--- NOTE | 2018-12-05 10:13 | CR ---
EXAMINATION: Portable chest radiograph. HISTORY: Shortness of breath. FINDINGS: The trachea is midline. The cardiomediastinal silhouette is within normal limits. No pulmonary infiltrates, effusions or pneumothorax. Mild chronic interstitial prominence. Osseous structures appear unremarkable. IMPRESSION: No acute cardiopulmonary process.
[2018-12-05 10:46] LABS: CHLORIDE,CL 106 mmol/L (98-107); SODIUM,NA 142 mmol/L (136-148)
[2018-12-05] MEDS ORDERED: Metoprolol Tartrate 5 MG in Sodium Chloride 0.9% 50 ML IV ONE (10:56)
[2018-12-05] MEDS ORDERED: Enoxaparin 100 MG/1 ML Syringe SUBCUT ONE (10:56)
[2018-12-05] MEDS ORDERED: Enalaprilat 1.25 MG/ML SDV IVPUSH STA (10:57)
[2018-12-05] MEDS ORDERED: Sodium Chloride 0.9% 1,000 ML IV SCH (11:00)
[2018-12-05] MEDS ORDERED: Metoprolol Tartrate 5 MG/5 ML SDV ONE (11:02)
[2018-12-05] MEDS ORDERED: Metoprolol Tartrate 5 MG/5 ML SDV IVPUSH ONE (11:02)
[2018-12-05 11:23] VITALS: BP 132/89
== END 2018-12-05 11:48 ==
LOC: MW.ED 09:36
DX: I24.9 Acute ischemic heart disease, unspecified (principal); R79.89 Other specified abnormal findings of blood chemistry; R74.8 Abnormal levels of other serum enzymes; F41.9 Anxiety disorder, unspecified; J44.9 Chronic obstructive pulmonary disease, unspecified; Z79.899 Other long term (current) drug therapy
CPT/HCPCS: 36415; 71045; 80053; 81003; 83690; 84484; 85025; 85610; 93005; 96374; 96375; 99285; A9270; C9113; J1650; J3490; J7040; 99284

== ENCOUNTER 2020-06-02 10:18 | Emergency (ER) | payer BC ==
--- NOTE | 2020-06-02 10:42 | PCM.SN.2 ---
- Free Text/Narrative Note: 12-Lead ECG Interpretation Acquired: 10:27 AM Rhythm: Sinus rhythm Rate: 93 bpm [place]: Normal Intervals: Normal Ectopy: PAC RV Strain: No obvious RV strain pattern. ST Segments/T-Waves: No notable changes T wave inversions in aVL, seen previously. Acute Ischemic Changes: None apparent Interpretation: No STEMI Compared to 12/05/2018, no significant change.
[2020-06-02] MEDS ORDERED: methylPREDNISolone Sodium Succinate 125 MG/2 ML SDV IVPUSH ONE (10:44)
[2020-06-02] MEDS ORDERED: Ketorolac 30 MG/ML SDV IVPUSH ONE (10:44)
[2020-06-02] MEDS ORDERED: Acetaminophen 500 MG Tab PO ONE (10:44)
[2020-06-02] MEDS ORDERED: Sodium Chloride 0.9% 1,000 ML IV ONE (10:44)
--- NOTE | 2020-06-02 10:51 | EDM.PDOC ---
ED HPI GENERAL MEDICAL PROBLEM - General Chief Complaint: Chest Pain Stated Complaint: CHEST PAIN/DIFFICULTY BREATHING Time Seen by Provider: 06/02/20 10:35 Source of Information: Reports: Patient History Limitations: Reports: No Limitations - History of Present Illness INITIAL COMMENTS - FREE TEXT/NARRATIVE: HISTORY AND PHYSICAL: History of present illness: Patient is a 55-year-old male, who was tested positive for COVID-19 on 05/27/2020 at the clinic in [place], who presents to the emergency room today with concern of shortness of breath and headache. Patient states he has had nearly every symptom of COVID-19 over the course of the past week. Patient states he has had cough, body aches, headache, shortness of breath, fever, and sore throat. Patient states that he has a history of COPD and he felt like his shortness of breath was worse this morning but states he has had the shortness of breath since his diagnosis of COVID-19. Patient states his biggest concerns are his shortness of breath and he has had a dull but consistent headache x 1 week. Patient states he did take a dose of Advil last night for the headache with mild relief of symptoms but has not taken any medications today. Patient states other than history of COPD, he denies any other health history. Patient states he has been monitoring his oxygen at home with a pulse oximeter and has b een from 90s to 97% consistently. Patient states that has never dropped below 90% at home. Patient denies chest pain. Denies neck stiff ness, change in vision, syncope, or near syncope. Denies nausea, vomiting, abdominal pain, diarrhea, constipation, or dysuria. Has not noted any blood in urine or stool. Patient has been eating and drinking appropriately. Review of systems: As per history of present illness and below otherwise all systems reviewed and negative. Past medical history: As per history of present illness and as reviewed below otherwise noncontributory. Surgical history: As per history of present illness and as reviewed below otherwise noncontributory. Social history: See social history for further information Family history: As per history of present illness and as reviewed below otherwise noncontributory. Physical exam: General: Patient is alert, oriented, and in no acute distress. Patient laying comfortably on exam table, tired appearing. HEENT: Atraumatic, normocephalic, pupils equal and reactive bilaterally, negative for conjunctival pallor or scleral icterus, mucous membranes moist, TMs normal bilaterally, throat clear, neck supple, nontender, trachea midline. No drooling or trismus noted. No meningeal signs. No hot potato voice noted. Lungs: Dry cough on exam. Patient speaking clearly without breathlessness, no wheezing or stridor, no accessory muscle use or respiratory distress. Auscultation deferred due to current COV-ID 19 outbreak. Heart: Auscultation deferred due to current COV-ID 19 outbreak. Abdomen: Soft, nondistended, nontender. Negative for masses or hepatosplenomegaly. Negative for costovertebral tenderness. Pelvis: Stable nontender. Genitourinary: Deferred. Rectal: Deferred. Skin: Intact, warm, dry. No lesions or rashes noted. Extremities: Atraumatic, negative for cords or calf pain. Neurovascular unremarkable. Neuro: Awake, alert, oriented. Cranial nerves II through XII unremarkable. Cerebellum unremarkable. Motor and sensory unremarkable throughout. Exam nonfocal. Notes: EKG-->see Dr. Green documentation for interpretation. 94-96% on RA upon my initial exam. Although tired appearing, patient appears well on my exam and breathing comfortably without audible wheezing or stridor. He does have a dry cough. After informing patient of elevated ddimer, he does state he has had some vague left leg discomfort over the past 1-2 weeks. Will get venous dopper of left LE although no edema of bilateral lower extremities, but in setting of elevated ddimer will obtain this. Patient does express improvement of symptoms with therapeutics in the ED today. Patient does not have an inhaler at home Chest x-ray shows a negative portable AP chest. LE doppler US shows normal left lower extremity venous ultrasound without sign of DVT. Ang CT chest shows no evidence of pulmonary embolism. There is trace basilar effusions with mild centrilobular emphysematous changes of the upper lobes with scattered ground- glass and airspace opacities consistent with history of atypical infiltrate Repeat EKG-->See Dr. Green documentation for interpretation. Admission for observation was offered to patient but he declines at this time. All risks vs benefits discussed with patient and expresses understanding. Patient does have known COVID19 diagnosis but along with h/o COPD and concern for possible developing infiltrate, will place on ABX and treat for COPD exacerbation. Signs and symptoms that would prompt return to the ED thoroughly discussed with patient . Discussed the importance for follow up with a primary care provider. Voices understanding and is agreeable to plan of care. Denies any further questions or concerns at this time. Diagnostics: EKGx2, CBC, CMP, CXR, Tropx2, Ddimer, Ang CT, Left LE venous US Therapeutics: NS, Solumedrol Prescription: Azithromycin, Prednisone, Albuterol inhaler Impression: COVID-19 infection COPD exacerbation Plan: 1. Your vital signs and oxygen saturation are well enough that you were able to monitor your symptoms at home. Continue to monitor for trouble breathing, new confusion or inability to arouse, bluish lips or face or any of the other symptoms we discussed -if this occurs please return to the emergency room.Continue to monitor your health at home for worsening symptoms so that you can be taken care of and treated quickly if needed. 2. Please self quarantine until 10 days have passed since your symptoms began AND you are fever free (<100.4 degrees fahrenheit) for 24 hours without the use of fever-reducing medications AND symptoms are improving. You should restrict activities outside of your home, except for getting medical care. Do not go to work, school, or public areas. Avoid using public transportation, ride-sharing, or taxis. Inform any persons that you have been in contact with since you started becoming symptomatic that you have tested positive; they should be made aware and take the appropriate steps as needed. 3. Take the medications as we prescribed as discussed. 4. You may alternate Tylenol and ibuprofen as needed for pain and fever management. 5. For more specific guidelines regarding isolation/quarantine please visit this website. ht tps://www.health.[place].gov/sites/www/files/documents/Files/LATISHA/coronavirus/Factshee t_for_People_With_COVID-19.pdf Definitive disposition and diagnosis as appropriate pending reevaluation and review of above. chest Pain Score (Numeric/FACES): 5 - Related Data Allergies Allergy/AdvReac Type Severity Reaction Status Date / Time No Known Allergies Allergy Verified 06/02/20 10:30 Home Meds: Home Meds LORazepam 1 mg PO TID PRN 02/15/17 [History] DULoxetine HCl [Cymbalta] 60 mg PO DAILY 07/13/17 [History] Gabapentin [Neurontin] 600 mg PO TID 07/13/17 [History] Albuterol Sulfate [Proair Hfa] 8.5 gm IH Q8HR PRN #1 [email or web address] 06/02/20 [Rx] Pramipexole [Mirapex] 2 tab PO BEDTIME 06/02/20 [History] predniSONE [Prednisone] 20 mg PO DAILY 5 Days #5 tablet 06/02/20 [Rx] Past Medical History HEENT History: Reports: Hard of Hearing, Impaired Vision, Other (See Below) Other HEENT History: wears glasses, has top and bottom partial, himanshu hearing aids Respiratory History: Reports: COPD Other Respiratory History: denies having prescribed inhaler Musculoskeletal History: Reports: Arthritis, Back Pain, Chronic, Fracture Other Musculoskeletal History: hx fx ribs and bone in left hand Neurological History: Reports: Head Trauma, Other (See Below) Other Neuro History: restless leg syndrome, hx head injury with stitches Psychiatric History: Reports: Anxiety Endocrine/Metabolic History: Reports: None - Infectious Disease History Infectious Disease History: Reports: Chicken Pox - Past Surgical History Head Surgeries/Procedures: Reports: None Neurological Surgical History: Reports: Lumbar Spine Other Neurological Surgeries/Procedures: hx back surgery Musculoskeletal Surgical History: Reports: Arthroscopic Knee, Hip Replacement, Shoulder Surgery Other Musculoskeletal Surgeries/Procedures:: right knee arthroscopy x3, left hip arthroplasty, himanshu shoulder surgery Social & Family History - Family History Family Medical History: No Pertinent Family History - Tobacco Use Tobacco Use Status *Q: Never Tobacco User - Recreational Drug Use Recreational Drug Use: No ED ROS GENERAL - Review of Systems Review Of Systems: Comprehensive ROS is negative, except as noted in HPI. ED EXAM, GENERAL - Physical Exam Exam: See Below (see dictation) Course - Vital Signs Last Recorded V/S: Last Vital Signs Temp 97.2 F 06/02/20 13:19 Pulse 86 06/02/20 13:19 Resp 16 06/02/20 13:19 BP 119/77 06/02/20 13:19 Pulse Ox 93 L 06/02/20 13:19 - Orders/Labs/Meds Orders: Active Orders 24 hr Category Date Time Status Cardiac Monitoring [RC] . DIRECTED Care 06/02/20 10:35 Active EKG Documentation Completion [RC] STAT Care 06/02/20 10:35 Active EKG Documentation Completion [RC] STAT Care 06/02/20 13:20 Active Labs: Laboratory Tests 06/02/20 06/02/20 06/02/20 Range/Units 10:35 10:35 10:35 WBC 3.07 L (4.0-11.0) K/uL RBC 4.58 (4.50-5.90) M/uL Hgb 14.6 (13.0-17.0) g/dL Hct 43.6 (38.0-50.0) % MCV 95.2 (80.0-98.0) fL MCH 31.9 (27.0-32.0) pg MCHC 33.5 (31.0-37.0) g/dL RDW Std Deviation 43.3 (28.0-62.0) fl RDW Coeff of Jose 13 (11.0-15.0) % Plt Count 119 L (150-400) K/uL MPV 10.30 (7.40-12.00) fL Neut % (Auto) 55.8 (48.0-80.0) % Lymph % (Auto) 32.2 (16.0-40.0) % [place] % (Auto) 8.1 (0.0-15.0) % Eos % (Auto) 3.6 (0.0-7.0) % Baso % (Auto) 0.3 (0.0-1.5) % Neut # (Auto) 1.7 (1.4-5.7) K/uL Lymph # (Auto) 1.0 (0.6-2.4) K/uL [place] # (Auto) 0.3 (0.0-0.8) K/uL Eos # (Auto) 0.1 (0.0-0.7) K/uL Baso # (Auto) 0.0 (0.0-0.1) K/uL Nucleated RBC % 0.0 /100WBC Nucleated RBCs # 0 K/uL D-Dimer, Quantitative 0.56 H (0.0-0.50) mg/L FEU Sodium 140 (136-148) mmol/L Potassium 4.3 (3.5-5.1) mmol/L Chloride 103 (98-107) mmol/L Carbon Dioxide 28.7 (21.0-32.0) mmol/L BUN 10 (7.0-18.0) mg/dL Creatinine 1.2 (0.8-1.3) mg/dL Est Cr Clr Drug Dosing 77.68 mL/min Estimated GFR (MDRD) > 60.0 ml/min Glucose 98 (74-106) mg/dL Calcium 8.6 (8.5-10.1) mg/dL Total Bilirubin 0.3 (0.2-1.0) mg/dL AST 26 (15-37) IU/L ALT 29 (14-63) IU/L Alkaline Phosphatase 86 (46-116) U/L Troponin I < 0.050 (0.000-0.056) ng/mL Total Protein 7.3 (6.4-8.2) g/dL Albumin 3.6 (3.4-5.0) g/dL Globulin 3.7 (2.6-4.0) g/dL Albumin/Globulin Ratio 1.0 (0.9-1.6) 11/16/20 Range/Units 13:30 WBC (4.0-11.0) K/uL RBC (4.50-5.90) M/uL Hgb (13.0-17.0) g/dL Hct (38.0-50.0) % MCV (80.0-98.0) fL MCH (27.0-32.0) pg MCHC (31.0-37.0) g/dL RDW Std Deviation (28.0-62.0) fl RDW Coeff of Jose (11.0-15.0) % Plt Count (150-400) K/uL MPV (7.40-12.00) fL Neut % (Auto) (48.0-80.0) % Lymph % (Auto) (16.0-40.0) % [place] % (Auto) (0.0-15.0) % Eos % (Auto) (0.0-7.0) % Baso % (Auto) (0.0-1.5) % Neut # (Auto) (1.4-5.7) K/uL Lymph # (Auto) (0.6-2.4) K/uL [place] # (Auto) (0.0-0.8) K/uL Eos # (Auto) (0.0-0.7) K/uL Baso # (Auto) (0.0-0.1) K/uL Nucleated RBC % /100WBC Nucleated RBCs # K/uL D-Dimer, Quantitative (0.0-0.50) mg/L FEU Sodium (136-148) mmol/L Potassium (3.5-5.1) mmol/L Chloride (98-107) mmol/L Carbon Dioxide (21.0-32.0) mmol/L BUN (7.0-18.0) mg/dL Creatinine (0.8-1.3) mg/dL Est Cr Clr Drug Dosing mL/min Estimated GFR (MDRD) ml/min Glucose (74-106) mg/dL Calcium (8.5-10.1) mg/dL Total Bilirubin (0.2-1.0) mg/dL AST (15-37) IU/L ALT (14-63) IU/L Alkaline Phosphatase (46-116) U/L Troponin I < 0.050 (0.000-0.056) ng/mL Total Protein (6.4-8.2) g/dL Albumin (3.4-5.0) g/dL Globulin (2.6-4.0) g/dL Albumin/Globulin Ratio (0.9-1.6) Meds: Medications Discontinued Medications Generic Name Dose Route Start Last Admin Trade Name Freq PRN Reason Stop Dose Admin Acetaminophen 1,000 mg 06/02/20 10:44 06/02/20 11:08 Tylenol Extra Strength PO 06/02/20 10:45 1,000 mg ONETIME ONE Administration Sodium Chloride 1,000 mls @ 999 mls/hr 06/02/20 10:44 06/02/20 11:08 Normal Saline IV 06/02/20 11:44 999 mls/hr STAT ONE Administration Iopamidol 100 ml 06/02/20 12:34 06/02/20 12:34 Isovue Multipack-370 (76%) IVPUSH 06/02/20 12:35 100 ml ONETIME ONE Administration Ketorolac Tromethamine 30 mg 06/02/20 10:44 06/02/20 11:08 Toradol IVPUSH 06/02/20 10:45 30 mg ONETIME ONE Administration Methylprednisolone Sodium Succinate 125 mg 06/02/20 10:44 06/02/20 11:09 Solu-Medrol IVPUSH 06/02/20 10:45 125 mg ONETIME ONE Administration Departure - Departure Time of Disposition: 13:32 Disposition: Home, Self-Care 01 Clinical Impression: COVID-19 virus infection, COPD exacerbation - Discharge Information Prescriptions: predniSONE [Prednisone] 20 mg PO DAILY 5 Days #5 tablet Albuterol Sulfate [Proair Hfa] 8.5 gm IH Q8HR PRN #1 [email or web address] PRN Reason: Cough Referrals: Austin Marquez MD [Primary Care Provider] - Forms: ED Department Discharge Additional Instructions: The following information is given to patients seen in the emergency department who are being discharged to home. This information is to outline your options for follow-up care. We provide all patients seen in our emergency department with a follow-up referral. The need for follow-up, as well as the timing and circumstances, are variable depending upon the specifics of your emergency department visit. If you don't have a primary care physician on staff, we will provide you with a referral. We always advise you to contact your personal physician following an emergency department visit to inform them of the circumstance of the visit and for follow-up with them and/or the need for any referrals to a consulting specialist. The emergency department will also refer you to a specialist when appropriate. This referral assures that you have the opportunity for follow-up care with a specialist. All of these measure are taken in an effort to provide you with optimal care, which includes your follow-up. Under all circumstances we always encourage you to contact your private physician who remains a resource for coordinating your care. When calling for follow-up care, please make the office aware that this follow-up is from your recent emergency room visit. If for any reason you are refused follow-up, please contact the [facility] Emergency Department at and asked to speak to the emergency department charge nurse. [facility] [address] [place] [address] [id number] 1. Your vital signs and oxygen saturation are well enough that you were able to monitor your symptoms at home. Continue to monitor for trouble breathing, new confusion or inability to arouse, bluish lips or face or any of the other symptoms we discussed -if this occurs please return to the emergency room.Continue to monitor your health at home for worsening symptoms so that you can be taken care of and treated quickly if needed. 2. Please self quarantine until 10 days have passed since your symptoms began AND you are fever free (<100.4 degrees fahrenheit) for 24 hours without the use of fever-reducing medications AND symptoms are improving. You should restrict activities outside of your home, except for getting medical care. Do not go to work, school, or public areas. Avoid using public transportation, ride-sharing, or taxis. Inform any persons that you have been in contact with since you started becoming symptomatic that you have tested positive; they should be made aware and take the appropriate steps as needed. 3. Take the medications as we prescribed as discussed. 4. You may alternate Tylenol and ibuprofen as needed for pain and fever management. 5. For more specific guidelines regarding isolation/quarantine please visit this website. https://www.health. [place].gov/sites/www/files/documents/Files/LATISHA/coronavirus/Factsheet_for_People_With _COVID-19.pdf Definitive disposition and diagnosis as appropriate pending reevaluation and review of above. Sepsis Event Note (ED) - Evaluation Sepsis Screening Result: No Definite Risk - Focused Exam Vital Signs: Vital Signs Temp Pulse Resp BP Pulse Ox 06/02/20 13:19 97.2 F 86 16 119/77 93 L 06/02/20 11:49 77 107/71 96 06/02/20 11:19 74 96/70 98 06/02/20 10:30 96.8 F L 96 16 118/80 95 - My Orders Last 24 Hours: My Active Orders 06/02/20 10:35 Cardiac Monitoring [RC] . DIRECTED EKG Documentation Completion [RC] STAT 06/02/20 13:20 EKG Documentation Completion [RC] STAT - Assessment/Plan Last 24 Hours: My Active Orders 06/02/20 10:35 Cardiac Monitoring [RC] . DIRECTED EKG Documentation Completion [RC] STAT 06/02/20 13:20 EKG Documentation Completion [RC] STAT
[2020-06-02 11:11] LABS: BLOOD UREA NITROGEN,BUN 10 mg/dL (7.0-18.0); CARBON DIOXIDE,CO2 28.7 mmol/L (21.0-32.0); CHLORIDE,CL 103 mmol/L (98-107); GLUCOSE RANDOM 98 mg/dL (74-106); POTASSIUM,K 4.3 mmol/L (3.5-5.1); SODIUM,NA 140 mmol/L (136-148)
--- NOTE | 2020-06-02 11:32 | CR ---
INDICATION: Chest pain. COMPARISON: December 05, 2018 chest radiograph. TECHNIQUE: Portable AP chest. FINDINGS: Normal size cardiac silhouette. Clear lung loaiza without evidence of acute pneumonic infiltrates or CHF. No pneumothorax or pleural effusion. No interval change. IMPRESSION: Negative portable AP chest. Dictated by Sydni Meehan MD @ Jun 02 2020 11:30AM Signed by Dr. Sydni Meehan @ Jun 02 2020 11:31AM
[2020-06-02] MEDS ORDERED: Iopamidol 755 MG/ML 500 ML Multipack Bottle IVPUSH ONE (12:34)
--- NOTE | 2020-06-02 12:45 | US ---
INDICATION: Leg pain and swelling TECHNIQUE: Ultrasound venous duplex lower left extremity. Compression venous exam was performed using beal-scale, color Doppler, and spectral Doppler analysis. COMPARISON: None. FINDINGS: Sonographic imaging demonstrates the left common femoral, deep femoral, superficial femoral, popliteal, posterior tibial and greater saphenous and the contralateral right common femoral veins to be fully compressible with normal color Doppler blood flow. IMPRESSION: Normal left lower extremity venous ultrasound, no sign of deep venous thrombosis. Dictated by Lake Langston MD @ Jun 02 2020 12:42PM Signed by Dr. Lake Langston @ Jun 02 2020 12:43PM
--- NOTE | 2020-06-02 13:14 | CT ---
Indication: Chest pain, jensen virus positive Technique: Volumetric multidetector CT images of the chest were obtained after the administration of IV contrast. 100 cc Isovue 370 Comparison: Single view chest June 02 2020 Findings: The thoracic inlet and thyroid gland are unremarkable. The thoracic aorta is nonaneurysmal. There is no central filling defect to suggest pulmonary embolism. There are enlarged mediastinal and hilar lymph nodes with minimal calcifications likely representing prior granulomatous disease and/or reactive changes. There is mild thickening of the central bronchi with mucoid impaction predominantly within the peripheral lower lobes. There is mild centrilobular emphysematous change of the bilateral hemithoraces with minimal peripheral ground-glass and airspace opacities likely representing multifocal infiltrates with trace basilar effusions. There is no pneumothorax There is no evidence of pulmonary mass or suspicious pulmonary nodule. The partially visualized upper abdominal viscera are within normal limits. The thoracic vertebral body heights demonstrate multiple endplate Schmorl`s defects without evidence of displaced fracture or dislocation. Impression: No evidence of pulmonary embolus. Trace basilar effusions with mild centrilobular emphysematous changes of the upper lobes with scattered ground-glass and airspace opacities consistent with history of atypical infiltrate. Please note that all CT scans at this facility use dose modulation, iterative reconstruction, and/or weight-based dosing when appropriate to reduce radiation dose to as low as reasonably achievable. Dictated by Lake Langston MD @ Jun 02 2020 12:55PM Signed by Dr. Lake Langston @ Jun 02 2020 1:12PM
--- NOTE | 2020-06-02 13:30 | PCM.SN.2 ---
- Free Text/Narrative Note: 12-Lead ECG Interpretation Acquired: 1:25 PM Rhythm: Sinus rhythm Rate: 82 bpm [place]: Normal Intervals: Normal Ectopy: None RV Strain: No obvious RV strain pattern. ST Segments/T-Waves: No notable changes Acute Ischemic Changes: None apparent Interpretation: No STEMI. No significant change from 10:27 AM today.
[2020-06-02 15:03] VITALS: BP 99/71; PULSE 85
== END 2020-06-02 15:03 | disposition home or self-care (01) ==
LOC: MW.ED 10:18
DX: U07.1 COVID-19 (principal); J44.1 Chronic obstructive pulmonary disease with (acute) exacerbation; F41.9 Anxiety disorder, unspecified; Z79.899 Other long term (current) drug therapy
CPT/HCPCS: 36415; 71045; 71275; 80053; 84484; 85025; 85379; 93005; 93971; 96374; 96375; 99285; A9270; J1885; J2930; J7030; Q9967; 93010

== ENCOUNTER 2024-01-23 08:21 | Emergency (ER) | payer BC ==
[2024-01-23 09:38] VITALS: BP 124/84; PULSE 68
== END 2024-01-23 09:08 | disposition home or self-care (01) ==
LOC: MW.ED 08:21
DX: A69.20 Lyme disease, unspecified (principal); J44.9 Chronic obstructive pulmonary disease, unspecified; Z79.899 Other long term (current) drug therapy; Z75.8 Other problems related to medical facilities and other health care
CPT/HCPCS: 99283

== ENCOUNTER 2024-10-20 17:07 | Emergency (ER) | payer BC ==
[2024-10-20] MEDS: oxyCODONE 5 MG Tab PO ONE (17:25)
[2024-10-20] MEDS: Bupivacaine 0.25% 10 ML SDV INJECT ONE ×2 (17:26→19:02)
[2024-10-20] MEDS: Diphtheria,Pertussis(Acell),Tetanus Vaccine 0.5 ML Syringe IM ONE (17:26)
[2024-10-20] MEDS: Lidocaine 1% 10 ML MDV INJECT ONE (19:01)
[2024-10-20] MEDS: Cephalexin 500 MG Cap PO ONE (20:25)
[2024-10-20 20:32] VITALS: BP 138/86; PULSE 82
== END 2024-10-20 20:32 | disposition home or self-care (01) ==
LOC: MW.ED 17:07
DX: S61.412A Laceration without foreign body of left hand, initial encounter (principal); Z79.899 Other long term (current) drug therapy; Z23 Encounter for immunization; W31.2XXA Contact with powered woodworking and forming machines, initial encounter; Y93.89 Activity, other specified
CPT/HCPCS: 12044; 73130; 90471; 90715; 99283; A9270; J0665; J2003